=== PATIENT | male | born 1950 ===

== ENCOUNTER 2017-04-26 13:35 | Emergency (ER) | payer OTHER ==
[2017-04-26 13:38] VITALS: BMI 32.3
[2017-04-26 13:39] VITALS: TEMP 98.2; O2SAT 98
--- NOTE | 2017-04-26 14:08 | ED PDOC ---
Arrival/HPI - General Chief Complaint: Abdominal Pain Time Seen by Provider: 04/26/17 13:42 Historian: Patient - History of Present Illness Narrative History of Present Illness (Text): 04/26/17 14:11 A 66 year old male, whose past medical history includes diabetes, presents to the emergency department complaining of decrease urination for the past week. Patient also notes every time he goes to urinate, only a little comes out with a sense of urgency. Patient notes constipation and has had bowel movements, not large enough. Denies any other complaints at this time. PMD: None Time/Duration: 1 week Symptom Onset: Sudden Symptom Course: Unchanged Activities at Onset: Rest Context: Home Past Medical History - Provider Review Nursing Documentation Reviewed: Yes - Infectious Disease Hx of Infectious Diseases: None - Cardiac Hx Cardiac Disorders: No - Pulmonary Hx Respiratory Disorders: No - Neurological Hx Neurological Disorder: No - HEENT Hx HEENT Disorder: No - Renal Hx Renal Disorder: No - Endocrine/Metabolic Hx Endocrine Disorders: Yes Hx Diabetes Mellitus Type 2: Yes (NIDD) - Hematological/Oncological Hx Blood Disorders: No - Integumentary Hx Dermatological Disorder: No - Musculoskeletal/Rheumatological Hx Musculoskeletal Disorders: No - Gastrointestinal Hx Gastrointestinal Disorders: No - Genitourinary/Gynecological Hx Genitourinary Disorders: No - Psychiatric Hx Psychophysiologic Disorder: No Hx Substance Use: No - Anesthesia Hx Anesthesia: No Family/Social History - Physician Review Nursing Documentation Reviewed: Yes Family/Social History: No Known Family HX Smoking Status: Never Smoked Hx Alcohol Use: No Hx Substance Use: No Allergies/Home Meds Allergies/Adverse Reactions: Allergies No Known Allergies Allergy (Verified 04/26/17 13:37) Home Medications: Home Meds Medication Instructions Recorded Confirmed metFORMIN [glucOPHAGE] 1,000 mg PO DAILY 04/26/17 04/26/17 Review of Systems - Physician Review All systems were reviewed & negative as marked: Yes Physical Exam - Physical Exam Narrative Physical Exam (Text): 04/26/17 14:08- Review of Systems Constitutional: Normal. absent: Fatigue, Weight Change, Fevers Eyes: Normal ENT: Normal Respiratory: Normal absent: SOB, Cough, Sputum Cardiovascular: Normal absent: Chest pain, Palpitations, Syncope Gastrointestinal: constipation absent: Abdominal pain, Diarrhea, Nausea, Vomiting Genitourinary: decrease in urination absent: Dysuria, Frequency, Hematuria Musculoskeletal: Normal. absent: Arthralgias, Back Pain, Neck Pain Skin: Normal Neurological: Normal absent: Focal Weakness Endocrine: Normal Hemo/Lymphatic: Normal Psychiatric: Normal - Physical exam Patient appears age appropriate, speaking full sentences without difficulty - Systems Exam Head: Present: Atraumatic, Normocephalic Pupils: Present: PERRL Extraocular Muscles: Present: EOMI Conjunctiva: Present: Normal Mouth: Present: Moist Mucous Membranes Neck: Present: Normal Range of Motion. No: MIDLINE TENDERNESS, Paraspinal Tenderness Respiratory/Chest: Present: Clear to Auscultation, Good Air Exchange. No: Respiratory Distress, Accessory Muscle Use, Tachypnic Cardiovascular: Present: tachycardic, Peripheral Pulses Present. No: Murmurs Abdomen: Present: Normal Bowel Sounds, No: Tenderness, Peritoneal Signs, Rebound, Guarding, Distention Back: Present: Normal Inspection. No: Midline Tenderness, Paraspinal Tenderness Upper Extremity: Present: Normal Inspection. No: Cyanosis, Edema Lower Extremity: Present: Normal Inspection. No: Edema Neurological: Present: GCS=15, Speech Normal, cranial nerves II through XII fully intact with no cerebellar abnormality, neuro-sensory fully intact. No focal neurological deficits. Skin: Present: Warm, Dry, Normal Color. No: Rashes Lymphatic: Present: OX3, NI, NC Psychiatric: Present: Alert, Oriented x 3, Normal Insight, Normal Concentration Vital Signs Reviewed: Yes Vital Signs Temp Pulse Resp BP Pulse Ox 04/26/17 14:24 98 H 18 145/79 98 04/26/17 13:38 98.2 F 110 H 19 148/71 98 Temperature: Afebrile Blood Pressure: Normal Pulse: Tachycardic Respiratory Rate: Normal Appearance: Positive for: Well-Appearing, Non-Toxic, Comfortable Pain Distress: None Mental Status: Positive for: Alert and Oriented X 3 Medical Decision Making ED Course and Treatment: 04/26/17 14:00 Impression: A 66 year old male with decrease in urination and constipation. No acute findings on physical exam. Plan: -- CT abd/pelvis -- labs -- Urinalysis -- Reassess and disposition Progress Notes: 04/26/17 15:10 CT Abdomen and Pelvis without intravenous contrast Creator : Dr. Mireles, Gutierrez MÉNDEZ IMPRESSION: Multiple enlarged pelvic lymph nodes the largest in the left external iliac and right perirectal lymph nodes with generalized prostate enlargement and periprostatic fat infiltration suspicious for underlying prostate carcinoma. Recommend correlation with PSA levels and biopsy. 04/26/17 15:31 pt has possible UTI, prostatitis cannot be excluded based on CT read as well dw Dr. Lexy Amos in detail. States to obtain PSA level and to dc pt home with outpatient f/u this Wed. 2pm at [facility] [place]. states to dc home on cipro and flomax pt in no distress pt's friend translating without difficulty afebrile and hemodynamically stable states he feels comfortable being dc'd home with outpatient f/u pt has been informed of dangers of fluoroquinolones and tendon damage, and instructed about cessation of heavy lifting and strenuous physical activity for the next 2-3 weeks. Pt verbalized understanding. pt abd is soft/nt/nd, he is tolerating PO without difficulty Pt states he understands to return to the ER right away for new or worsening symptoms or for inability to f/u with PMD or specialist as instructed. Patient states that he fully agrees with and understands discharge instructions. States that she agrees with the plan and disposition. Verbalized and repeated discharge instructions and plan. I have given the patient opportunity to ask any additional questions. - Lab Interpretations Lab Results: 04/26/17 14:18 04/26/17 14:18 Lab Results 04/26/17 14:36: Urine Color Yellow, Urine Appearance Sl cloudy, Urine pH 6.0, Ur Specific [place] 1.020, Urine Protein Negative, Urine Glucose (UA) >=1000, Urine Ketones Trace H, Urine Blood Trace-lysed H, Urine Nitrate Positive H, Urine Bilirubin Negative, Urine Urobilinogen 0.2, Ur Leukocyte Esterase Trace H , Urine RBC 0 - 2, Urine WBC 15 - 20, Ur Epithelial Cells 0 - 2, Urine Bacteria Many 04/26/17 14:18: Sodium 134, Potassium 4.3, Chloride 100, Carbon Dioxide 26, Anion Gap 12, BUN 14, Creatinine 0.7, Est GFR ( Amer) > 60, Est GFR (Non- Af Amer) > 60, Random Glucose 352 H*, Calcium 9.1, Phosphorus 3.2, Magnesium 1.9 , Total Bilirubin 0.7, AST 25, ALT 36, Alkaline Phosphatase 180 H, Total Protein 7.5, Albumin 3.5, Globulin 3.9, Albumin/Globulin Ratio 0.9 L 04/26/17 14:18: PT 11.4, INR 1.06, APTT 28.2 04/26/17 14:18: WBC 13.5 H, RBC 4.07, Hgb 12.3 L, Hct 36.2 L, MCV 88.9, MCH 30.2 , MCHC 34.0, RDW 12.6, Plt Count 354, MPV 8.6, Gran % 83.9 H, Lymph % (Auto) 11.0 L, [place] % (Auto) 4.0, Eos % (Auto) 1.0 L, Baso % (Auto) 0.1, Gran # 11.31 H , Lymph # 1.5, [place] # 0.5, Eos # 0.1, Baso # 0.01 I have reviewed the lab results: Yes - RAD Interpretation Radiology Orders: 04/26/17 13:54 ABD & PELVIS W/O PO OR IV CONT [CT] Stat - Medication Orders Current Medication Orders: Sodium Chloride (Sodium Chloride 0.9%) 1,000 mls @ 1,000 mls/hr IV .Q1H STA Stop: 04/26/17 15:42 Last Admin: 04/26/17 14:45 Dose: 1,000 mls/hr - Scribe Statement The provider has reviewed the documentation as recorded by the Tianna Mallory Provider Scribe Attestation: All medical record entries made by the Scribe were at my direction and personally dictated by me. I have reviewed the chart and agree that the record accurately reflects my personal performance of the history, physical exam, medical decision making, and the department course for this patient. I have also personally directed, reviewed, and agree with the discharge instructions and disposition. Disposition/Present on Arrival - Present on Arrival Any Indicators Present on Arrival: No History of DVT/PE: No History of Uncontrolled Diabetes: No Urinary Catheter: No History of Decub. Ulcer: No History Surgical Site Infection Following: None - Disposition Have Diagnosis and Disposition been Completed?: Yes Diagnosis: Prostatitis Disposition: HOME/ ROUTINE Disposition Time: 15:43 Patient Plan: Discharge Patient Problems: Current Active Problems Problem Status Onset Prostatitis Acute Condition: GOOD Discharge Instructions (ExitCare): Prostatitis (ED), Constipation (ED) Additional Instructions: PLEASE RETURN TO THE EMERGENCY DEPARTMENT FOR NEW OR WORSENING SYMPTOMS. RETURN RIGHT AWAY IF YOU CANNOT FOLLOW UP WITH SCHEDULED YOU HAVE AN APPOINTMENT WITH DR. ISAEL AMOS THIS WEDNESDAY AT 2PM AT [facility] [address] [place] [address]. Prescriptions: Ciprofloxacin [Cipro] 500 mg PO Q12 #60 tab Docusate [Colace] 100 mg PO DAILY PRN #14 cap PRN Reason: Constipation Tamsulosin [Flomax] 0.4 mg PO DAILY #4 cap Referrals: PCP,NO [Primary Care Provider] - Follow up with primary Isael Amos MD [Staff Provider] - Follow up with primary
[2017-04-26 14:24] VITALS: RESP 18
[2017-04-26 14:32] LABS: ALB/GLOB RATIO 0.9 (1.1-1.8); ALBUMIN 3.5 g/dL (3.0-4.8); ALT/SGPT 36 U/L (7-56); AST/SGOT 25 U/L (15-59); BLOOD UREA NITROGEN 14 mg/dL (7-21); CALCIUM 9.1 mg/dL (8.4-10.5); GFR AFRICAN-AMERICAN > 60; GFR NON-AFRICAN AMERICAN > 60; INR 1.06 (0.93-1.08); MAGNESIUM 1.9 mg/dL (1.7-2.2); PARTIAL THROMBOPLASTIN TIME 28.2 Seconds (23.7-30.8); PROTHROMBIN TIME 11.4 Seconds (9.9-11.8)
[2017-04-26 14:39] LABS: BASO # 0.01 K/mm3 (0.0-2.0); BASO % 0.1 % (0.0-3.0); EOS # 0.1 (0.0-0.7); GRAN # 11.31 (1.4-6.5); GRAN % 83.9 % (50.0-68.0); HEMOGLOBIN 12.3 gm/dL (14.0-18.0); LYMPH # 1.5 (1.2-3.4); MEAN CELL VOLUME 88.9 fL (80.0-105.0); MEAN CORPUSCULAR HEMOGLOBIN 30.2 pg (25.0-35.0); MEAN PLATELET VOLUME 8.6 fl (7.0-11.0); MONO # 0.5 (0.1-0.6); PLATELET COUNT 354 10^3/uL (120.0-450.0); RBC 4.07 10^6/uL (3.5-6.1); RED CELL DISTRIBUTION WIDTH 12.6 % (11.5-14.5); WHITE BLOOD COUNT 13.5 10^3/ul (4.5-11.0)
[2017-04-26] MEDS ORDERED: Sodium Chloride 0.9% 1,000 ML IV STA (14:43)
[2017-04-26 15:06] LABS: URINE BILIRUBIN NEGATIVE (NEGATIVE); URINE BLOOD TRACE-LYSED (NEGATIVE); URINE GLUCOSE (UA) >=1000 mg/dL (NEGATIVE); URINE LEUKOCYTE ESTERASE TRACE Leu/uL (NEGATIVE); URINE NITRATE POSITIVE (NEGATIVE); URINE PROTEIN NEGATIVE mg/dL (<30 mg/dL); URINE UROBILINOGEN 0.2 E.U./dL (<1 E.U./dL)
--- NOTE | 2017-04-26 15:08 | CT ---
PROCEDURE: CT Abdomen and Pelvis without intravenous contrast HISTORY: constipation COMPARISON: None. TECHNIQUE: Technique. Contrast Dose: Radiation dose: Total exam DLP = 1143 mGy-cm. This CT exam was performed using one or more of the following dose reduction techniques: Automated exposure control, adjustment of the mA and/or kV according to patient size, and/or use of iterative reconstruction technique. FINDINGS: LOWER THORAX: Unremarkable. LIVER: Unremarkable. No gross lesion or ductal dilatation. GALLBLADDER AND BILE DUCTS: Unremarkable. PANCREAS: Unremarkable. No gross lesion or ductal dilatation. SPLEEN: Unremarkable. ADRENALS: Unremarkable. No mass. KIDNEYS AND URETERS: Unremarkable. No hydronephrosis. No solid mass. 2.7 centimeter left lower pole renal cyst. VASCULATURE: Unremarkable. No aortic aneurysm. BOWEL: Unremarkable. No obstruction. No gross mural thickening. APPENDIX: Unremarkable. Normal appendix. PERITONEUM: Unremarkable. No free fluid. No free air. LYMPH NODES: Enlarged pelvic lymph nodes most notably in the left external iliac chain measuring 11 millimeters. 9 millimeter right perirectal lymph node BLADDER: Unremarkable. REPRODUCTIVE: Prostate enlargement with infiltration of the periprostatic fat.. BONES: No acute fracture. OTHER FINDINGS: None. IMPRESSION: Multiple enlarged pelvic lymph nodes the largest in the left external iliac and right perirectal lymph nodes with generalized prostate enlargement and periprostatic fat infiltration suspicious for underlying prostate carcinoma. Recommend correlation with PSA levels and biopsy.
[2017-04-26 15:09] LABS: URINE APPEARANCE SL CLOUDY (CLEAR); URINE COLOR YELLOW (YELLOW)
[2017-04-26 15:24] LABS: URINE BACTERIA MANY (NEG); URINE EPITHELIAL CELLS 0 - 2 /hpf (0-5); URINE RBC 0 - 2 /hpf (0-2); URINE WBC 15 - 20 /hpf (0-6)
[2017-04-26 16:29] VITALS: BP 141/75; PULSE 89
== END 2017-04-26 16:33 | disposition home or self-care (01) ==
LOC: ED 13:35
DX: N41.9 Inflammatory disease of prostate, unspecified (principal); E11.9 Type 2 diabetes mellitus without complications
CPT/HCPCS: 74176; 80053; 81001; 83735; 84100; 84153; 85025; 85610; 85730; 87086; 87181; 96360; 99284; J7040

== ENCOUNTER 2017-04-26 18:48 | Inpatient (IN) | payer OTHER ==
[2017-04-26 19:03] VITALS: BMI 31.5
--- NOTE | 2017-04-26 20:05 | ED PDOC ---
Arrival/HPI - General Chief Complaint: High Blood Sugar Time Seen by Provider: 04/26/17 19:26 Historian: Patient - History of Present Illness Narrative History of Present Illness (Text): 04/26/17 20:06 A 66 year old male, whose past medical history includes diabetes, presents to the emergency department complaining of generalized malaise, chills and difficulty urinating. Patient was seen in the emergency department today with complaint of difficulty urinating and constipation. Patient was evaluated and diagnosed prostatitis. Had a CAT scan done, suspicion of underlying carcinoma. Patient was prescribed antibiotics. Patient following discharge, developed symptoms and returned to emergency department. Symptom Onset: Sudden Symptom Course: Unchanged Activities at Onset: Rest Context: Home Past Medical History - Provider Review Nursing Documentation Reviewed: Yes - Infectious Disease Hx of Infectious Diseases: None - Cardiac Hx Cardiac Disorders: No - Pulmonary Hx Respiratory Disorders: No - Neurological Hx Neurological Disorder: No - HEENT Hx HEENT Disorder: No - Renal Hx Renal Disorder: No - Endocrine/Metabolic Hx Endocrine Disorders: Yes Hx Diabetes Mellitus Type 2: Yes (NIDD) - Hematological/Oncological Hx Blood Disorders: No - Integumentary Hx Dermatological Disorder: No - Musculoskeletal/Rheumatological Hx Musculoskeletal Disorders: No - Gastrointestinal Hx Gastrointestinal Disorders: No - Genitourinary/Gynecological Hx Genitourinary Disorders: No - Psychiatric Hx Psychophysiologic Disorder: No Hx Substance Use: No - Anesthesia Hx Anesthesia: No Family/Social History - Physician Review Nursing Documentation Reviewed: Yes Family/Social History: No Known Family HX Smoking Status: Never Smoked Hx Alcohol Use: No Hx Substance Use: No Allergies/Home Meds Allergies/Adverse Reactions: Allergies No Known Allergies Allergy (Verified 04/26/17 13:37) Home Medications: Home Meds Medication Instructions Recorded Confirmed metFORMIN [glucOPHAGE] 1,000 mg PO DAILY 04/26/17 04/26/17 Review of Systems - Physician Review All systems were reviewed & negative as marked: Yes - Review of Systems Constitutional: Other (chills; generalized malaise) Genitourinary Male: Other (difficulty urinating) Physical Exam Vital Signs Reviewed: Yes Vital Signs Temp Pulse Resp BP Pulse Ox 04/26/17 20:02 103 F H 04/26/17 18:56 98.6 F 145 H 24 149/86 95 Temperature: Afebrile Blood Pressure: Normal Pulse: Tachycardic Respiratory Rate: Normal Appearance: Positive for: Well-Appearing, Non-Toxic, Comfortable Pain Distress: None Mental Status: Positive for: Alert and Oriented X 3 Finger Stick Blood Glucose: 339 - Systems Exam Head: Present: Atraumatic, Normocephalic Pupils: Present: PERRL Extroacular Muscles: Present: EOMI Conjunctiva: Present: Normal Mouth: Present: Moist Mucous Membranes Neck: Present: Normal Range of Motion Respiratory/Chest: Present: Clear to Auscultation, Good Air Exchange. No: Respiratory Distress, Accessory Muscle Use Cardiovascular: Present: Tachycardic. No: Murmurs Abdomen: Present: Normal Bowel Sounds. No: Tenderness, Distention, Peritoneal Signs Back: Present: Normal Inspection Upper Extremity: Present: Normal Inspection. No: Cyanosis, Edema Lower Extremity: Present: Normal Inspection. No: Edema Neurological: Present: GCS=15, CN II-XII Intact, Speech Normal Skin: Present: Warm, Dry, Normal Color. No: Rashes Psychiatric: Present: Alert, Oriented x 3, Normal Insight, Normal Concentration Medical Decision Making ED Course and Treatment: 04/26/17 20:02 Impression: A 66 year old male with generalized malaise, chills and difficulty urinating. Differential Diagnosis included but are not limited to: prostate carcinoma vs. UTI vs. urosepsis Plan: -- EKG -- chest xray -- labs -- Urinalysis -- IV fluids, Tylenol -- Reassess and disposition Prior Visits: Notes and results from previous visits were reviewed. Patient seen in the emergency department today for decrease urination. Progress Notes: EKG: Ordered, reviewed, and independently interpreted the EKG. Rate : 140 BPM Rhythm : Sinus tachycardic Interpretation : left axis deviation, nonspecific ST/T changes 04/26/17 20:50 Case was d/w who saw and evaluated pt. in ED.Accepts to the hospitalist service. - Lab Interpretations Lab Results: 04/26/17 19:40 04/26/17 19:40 Lab Results 04/26/17 20:00: Urine Color Yellow, Urine Appearance Cloudy, Urine pH 6.0, Ur Specific [place] 1.020, Urine Protein Negative, Urine Glucose (UA) >=1000, Urine Ketones 40 H, Urine Blood Moderate H, Urine Nitrate Positive H, Urine Bilirubin Negative, Urine Urobilinogen 0.2, Ur Leukocyte Esterase Small H, Urine RBC 5 - 10, Urine WBC 5 - 10, Ur Epithelial Cells 3 - 4, Urine Bacteria Many 04/26/17 19:40: Sodium 134, Chloride 100, Potassium 3.9, Carbon Dioxide 24, Anion Gap 14, BUN 13, Creatinine 0.7, Est GFR ( Amer) > 60, Est GFR (Non- Af Amer) > 60, Random Glucose 323 H*, Calcium 9.0, Phosphorus 2.0 L, Magnesium 1.7, Total Bilirubin 0.8, AST 27, ALT 35, Alkaline Phosphatase 202 H, Total Protein 7.5, Albumin 3.6, Globulin 3.9, Albumin/Globulin Ratio 0.9 L 04/26/17 19:40: pO2 35, VBG pH 7.37, VBG pCO2 42.0, VBG HCO3 24.3, VBG Total CO2 25.6, VBG O2 Sat (Calc) 68.4 H, VBG Base Excess -1.1 L, VBG Potassium 4.1, Sodium 135.0, Chloride 102.0, Glucose 336 H, Lactate 2.1, FiO2 21.0, Venous Blood Potassium 4.1 04/26/17 19:40: PT 11.6, INR 1.07, APTT 23.3 L 04/26/17 19:40: WBC 13.8 H, RBC 4.22, Hgb 12.7 L, Hct 37.5 L, MCV 88.9, MCH 30.1 , MCHC 33.9, RDW 12.7, Plt Count 358, MPV 8.8, Gran % 93.3 H, Lymph % (Auto) 4.4 L, [place] % (Auto) 1.6, Eos % (Auto) 0.6 L, Baso % (Auto) 0.1, Gran # 12.86 H , Lymph # 0.6 L, [place] # 0.2, Eos # 0.1, Baso # 0.01 I have reviewed the lab results: Yes - RAD Interpretation Radiology Orders: 04/26/17 20:25 CHEST PORTABLE [RAD] Stat - EKG Interpretation Interpreted by ED Physician: Yes Type: 12 lead EKG - Medication Orders Current Medication Orders: Cefepime HCl (Maxipime 2gm) 2 gm in 100 mls @ 100 mls/hr IVPB STAT STA PRN Reason: Protocol Stop: 04/26/17 21:24 Last Admin: 04/26/17 20:35 Dose: 100 mls/hr Discontinued Medications Acetaminophen (Tylenol 325mg Tab) 650 mg PO STAT STA Stop: 04/26/17 19:34 Last Admin: 04/26/17 20:02 Dose: 650 mg Sodium Chloride (Sodium Chloride 0.9%) 1,000 mls @ 999 mls/hr IV .Q1H1M STA Stop: 04/26/17 20:33 Last Admin: 04/26/17 20:55 Dose: Sodium Chloride 2,990 ml/ IV (SUPPLIES) 2,990 mls @ 5,987.4 mls/hr IV ONCE ONE PRN Reason: 60 ML/KG/HR Stop: 04/26/17 19:59 Last Admin: 04/26/17 20:55 Dose: 5,987.4 mls/hr - Scribe Statement The provider has reviewed the documentation as recorded by the Tianna Mallory Provider Scribe Attestation: All medical record entries made by the Letaibrocky were at my direction and personally dictated by me. I have reviewed the chart and agree that the record accurately reflects my personal performance of the history, physical exam, medical decision making, and the department course for this patient. I have also personally directed, reviewed, and agree with the discharge instructions and disposition. Disposition/Present on Arrival - Present on Arrival Any Indicators Present on Arrival: No History of DVT/PE: No History of Uncontrolled Diabetes: No Urinary Catheter: No History of Decub. Ulcer: No History Surgical Site Infection Following: None - Disposition Have Diagnosis and Disposition been Completed?: Yes Diagnosis: Sepsis Disposition: HOSPITALIZED Disposition Time: 21:07 Patient Plan: Admission Condition: STABLE Discharge Instructions (ExitCare): Sepsis (ED) Referrals: PCP,NO [Primary Care Provider] - Follow up with primary
[2017-04-26 20:08] LABS: VENOUS BLOOD GAS BASE EXCESS -1.1 mmol/L (0.0-2.0); VENOUS BLOOD GAS PO2 35 mm/Hg (30-55); VENOUS BLOOD PH 7.37 (7.32-7.43)
[2017-04-26] MEDS: Sodium Chloride 0.9% 1,000 ML IV STA ×2 (20:10→20:55)
[2017-04-26 20:15] LABS: BASO # 0.01 K/mm3 (0.0-2.0); BASO % 0.1 % (0.0-3.0); EOS # 0.1 (0.0-0.7); EOS % 0.6 % (1.5-5.0); GRAN # 12.86 (1.4-6.5); GRAN % 93.3 % (50.0-68.0); HEMOGLOBIN 12.7 gm/dL (14.0-18.0); LYMPH # 0.6 (1.2-3.4); LYMPH % 4.4 % (22.0-35.0); MEAN CELL VOLUME 88.9 fL (80.0-105.0); MEAN CORPUSCULAR HEMOGLOBIN 30.1 pg (25.0-35.0); MEAN CORPUSCULAR HGB CONC 33.9 g/dl (31.0-37.0); MEAN PLATELET VOLUME 8.8 fl (7.0-11.0); MONO # 0.2 (0.1-0.6); MONO % 1.6 % (1.0-6.0); PLATELET COUNT 358 10^3/uL (120.0-450.0); RBC 4.22 10^6/uL (3.5-6.1); RED CELL DISTRIBUTION WIDTH 12.7 % (11.5-14.5); WHITE BLOOD COUNT 13.8 10^3/ul (4.5-11.0)
[2017-04-26 20:17] LABS: URINE BILIRUBIN NEGATIVE (NEGATIVE); URINE BLOOD MODERATE (NEGATIVE); URINE GLUCOSE (UA) >=1000 mg/dL (NEGATIVE); URINE LEUKOCYTE ESTERASE SMALL Leu/uL (NEGATIVE); URINE NITRATE POSITIVE (NEGATIVE); URINE PROTEIN NEGATIVE mg/dL (<30 mg/dL); URINE UROBILINOGEN 0.2 E.U./dL (<1 E.U./dL)
[2017-04-26 20:19] LABS: ALB/GLOB RATIO 0.9 (1.1-1.8); ALBUMIN 3.6 g/dL (3.0-4.8); ALT/SGPT 35 U/L (7-56); AST/SGOT 27 U/L (15-59); BLOOD UREA NITROGEN 13 mg/dL (7-21); GFR AFRICAN-AMERICAN > 60; GFR NON-AFRICAN AMERICAN > 60; MAGNESIUM 1.7 mg/dL (1.7-2.2)
[2017-04-26 20:23] LABS: INR 1.07 (0.93-1.08); PARTIAL THROMBOPLASTIN TIME 23.3 Seconds (23.7-30.8); PROTHROMBIN TIME 11.6 Seconds (9.9-11.8)
[2017-04-26] MEDS ORDERED: Cefepime IV 2 gm in NS 2 GM/100 ML BAG IVPB STA (20:25)
[2017-04-26 20:33] LABS: URINE APPEARANCE CLOUDY (CLEAR); URINE COLOR YELLOW (YELLOW)
[2017-04-26 20:51] LABS: URINE BACTERIA MANY (NEG)
[2017-04-26] MEDS: Sodium Chloride 0.9% 1,000 ML IV SCH ×2 (22:25→23:30)
[2017-04-26] MEDS ORDERED: Pneumococcal 23-Valent Vaccine IM ONE (22:56)
[2017-04-26 23:12] LABS: VENOUS BLOOD GAS BASE EXCESS -3.2 mmol/L (0.0-2.0); VENOUS BLOOD GAS PO2 103 mm/Hg (30-55); VENOUS BLOOD PH 7.39 (7.32-7.43)
[2017-04-27 01:09] LABS: URINE BILIRUBIN NEGATIVE (NEGATIVE); URINE BLOOD LARGE (NEGATIVE); URINE GLUCOSE (UA) >=1000 mg/dL (NEGATIVE); URINE LEUKOCYTE ESTERASE SMALL Leu/uL (NEGATIVE); URINE NITRATE POSITIVE (NEGATIVE); URINE PROTEIN TRACE mg/dL (<30 mg/dL); URINE UROBILINOGEN 0.2 E.U./dL (<1 E.U./dL)
[2017-04-27 01:25] LABS: URINE COLOR YELLOW (YELLOW)
[2017-04-27 01:26] LABS: URINE APPEARANCE SL CLOUDY (CLEAR)
[2017-04-27 01:33] LABS: URINE EPITHELIAL CELLS 0 - 2 /hpf (0-5)
[2017-04-27 01:34] LABS: URINE BACTERIA SMALL (NEG)
--- NOTE | 2017-04-27 02:14 | CP.PCM.HP ---
<QUITA EASTON - Last Filed: 04/27/17 07:17> History of Present Illness - History of Present Illness History of Present Illness: A 66 year old male with a past medical history of DM II, presented to the ED today with complaints of difficulty urinating, suprapubic pain, and a general feeling of malaise. Patient was evaluated and diagnosed with prostatitis in the ED for which he was prescribed ciprofloxacin. Patient was sent home where he was later found to be delirious as described by his girlfriend. As per girlfriend patient was speaking to himself and not making much sense. Upon returning to the ED, patient still complained of similar symptoms he had earlier this day. Present on Admission - Present on Admission Any Indicators Present on Admission: No History of DVT/PE: No History of Uncontrolled Diabetes: Yes Urinary Catheter: Yes Decubitus Ulcer Present: No Review of Systems - Review of Systems Systems not reviewed;Unavailable: Altered Mental Status, Language Barrier All systems: reviewed and no additional remarkable complaints except (dysuria, general malaise, chills) Past Patient History - Infectious Disease Hx of Infectious Diseases: None - Past Medical History & Family History Past Medical History?: No - Past Social History Smoking Status: Never Smoked - CARDIAC Hx Cardiac Disorders: No - PULMONARY Hx Respiratory Disorders: No - NEUROLOGICAL Hx Neurological Disorder: No - HEENT Hx HEENT Problems: No - RENAL Hx Chronic Kidney Disease: No - ENDOCRINE/METABOLIC Hx Endocrine Disorders: Yes Hx Diabetes Mellitus Type 2: Yes (NIDD) - HEMATOLOGICAL/ONCOLOGICAL Hx Blood Disorders: No - INTEGUMENTARY Other/Comment: multiple skin discolorations ble and dry scabs to rle, small red wound 0.5cm round left shoulder - MUSCULOSKELETAL/RHEUMATOLOGICAL Hx Musculoskeletal Disorders: No Hx Falls: No - GASTROINTESTINAL Hx Gastrointestinal Disorders: No - GENITOURINARY/GYNECOLOGICAL Hx Genitourinary Disorders: Yes (difficulty urinating) - PSYCHIATRIC Hx Psychophysiologic Disorder: No Hx Substance Use: No - SURGICAL HISTORY 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) - ANESTHESIA Hx Anesthesia: No Meds Allergies/Adverse Reactions: Allergies Allergy/AdvReac Type Severity Reaction Status Date / Time No Known Allergies Allergy Verified 04/26/17 13:37 Physical Exam - Head Exam Head Exam: ATRAUMATIC, NORMAL INSPECTION, NORMOCEPHALIC - Eye Exam Eye Exam: Normal appearance - ENT Exam ENT Exam: Mucous Membranes Moist, Normal Exam - Neck Exam Neck exam: Positive for: Normal Inspection - Respiratory Exam Respiratory Exam: Clear to Auscultation Bilateral, NORMAL BREATHING PATTERN - Cardiovascular Exam Cardiovascular Exam: REGULAR RHYTHM - GI/Abdominal Exam GI & Abdominal Exam: Normal Bowel Sounds - Neurological Exam Neurological exam: Alert Results - Vital Signs Recent Vital Signs: Last Vital Signs Temp 101.5 F H 04/27/17 00:39 Pulse 92 H 04/27/17 01:57 Resp 20 04/27/17 00:01 BP 149/77 04/27/17 00:01 Pulse Ox 98 04/27/17 00:01 - Labs Result Diagrams: 04/26/17 19:40 04/26/17 19:40 Labs: Laboratory Results - last 24 hr 04/26/17 04/26/17 04/27/17 22:38 23:06 01:00 pO2 103 H VBG pH 7.39 VBG pCO2 35.0 L VBG HCO3 21.2 VBG Total CO2 22.3 VBG O2 Sat (Calc) 98.6 H VBG Base Excess -3.2 L VBG Potassium 4.2 Sodium 134.0 Chloride 106.0 Glucose 372 H Lactate 1.3 FiO2 21.0 POC Glucose (mg/dL) 397 H Venous Blood Potassium 4.2 Urine Color Yellow Urine Appearance Sl cloudy Urine pH 6.0 Ur Specific [place] 1.025 Urine Protein Trace H Urine Glucose (UA) >=1000 Urine Ketones 40 H Urine Blood Large H Urine Nitrate Positive H Urine Bilirubin Negative Urine Urobilinogen 0.2 Ur Leukocyte Esterase Small H Urine RBC 5 - 10 Urine WBC 5 - 10 Ur Epithelial Cells 0 - 2 Urine Bacteria Small Assessment & Plan (1) Sepsis due to urinary tract infection Assessment and Plan: Patient was started on IV cefipime 2 gm in 100 mL NS and Zofran 4 mg IV q 12 hours. Will monitor WBC count and response to therapy with daily CBCs at 6 am for the next 5 days. Will have a cmp done in the morning. Status: Acute (2) Hyperglycemia Assessment and Plan: Patient was started on Insulin low dose sliding scale since patient is already prescribed metformin PO from PCP . Status: Acute (3) Hypophosphatemia Assessment and Plan: Can cause weakness and loss of energy. Prescribed I packet PO TID of Neutraphos. Will continue to monitor phosphate levels during course of stay. Status: Acute (4) Prostatitis Assessment and Plan: Due to positive LAD and suprapubic pain rated a 7/10, will have urology on board with this case to determine whether LAD is from a cancerous etiology or due to protatitis. Will prescribe flomax since patient is complaining of difficulty urinating. Status: Acute <Agnes,Brendon Q - Last Filed: 05/01/17 06:53> Results - Vital Signs Recent Vital Signs: Last Vital Signs Temp 98.6 F 04/30/17 07:30 Pulse 77 04/30/17 07:30 Resp 20 04/30/17 07:30 BP 157/74 H 04/30/17 07:30 Pulse Ox 95 04/30/17 07:30 - Labs Result Diagrams: 04/30/17 06:50 04/30/17 06:50 Labs: Laboratory Results - last 24 hr 04/29/17 04/29/17 04/30/17 06:30 07:30 06:50 WBC 9.7 RBC 3.68 Hgb 10.8 L Hct 32.7 L MCV 88.9 MCH 29.3 MCHC 33.0 RDW 12.9 Plt Count 336 MPV 8.4 Gran % 76.3 H Lymph % (Auto) 15.4 L [place] % (Auto) 5.8 Eos % (Auto) 2.3 Baso % (Auto) 0.2 Gran # 7.37 H Lymph # 1.5 [place] # 0.6 Eos # 0.2 Baso # 0.02 Sodium Potassium Chloride Carbon Dioxide Anion Gap BUN Creatinine Est GFR ( Amer) Est GFR (Non-Af Amer) Random Glucose Calcium Total Bilirubin AST ALT Alkaline Phosphatase Total Protein Albumin Globulin Albumin/Globulin Ratio Free PSA 0.6 % Free PSA 19 L Total PSA 3.1 Prostate Cancer Risk 24 HIV 1&2 Ag/Ab, 4th Gen Nonreactive 04/30/17 06:50 WBC RBC Hgb Hct MCV MCH MCHC RDW Plt Count MPV Gran % Lymph % (Auto) [place] % (Auto) Eos % (Auto) Baso % (Auto) Gran # Lymph # [place] # Eos # Baso # Sodium 136 Potassium 4.1 Chloride 102 Carbon Dioxide 28 Anion Gap 10 BUN 8 Creatinine 0.6 Est GFR ( Amer) > 60 Est GFR (Non-Af Amer) > 60 Random Glucose 185 H Calcium 8.6 Total Bilirubin 0.4 AST 55 ALT 43 Alkaline Phosphatase 154 H Total Protein 6.5 Albumin 3.0 Globulin 3.5 Albumin/Globulin Ratio 0.9 L Free PSA % Free PSA Total PSA Prostate Cancer Risk HIV 1&2 Ag/Ab, 4th Gen Attending/Attestation - Attestation I have personally seen and examined this patient.: Yes I have fully participated in the care of the patient.: Yes I have reviewed all pertinent clinical information: Yes
[2017-04-27] MEDS: Sodium Chloride 0.9% 1,000 ML IV SCH ×5 (05:34→22:57)
[2017-04-27 07:30] LABS: BASO # 0.02 K/mm3 (0.0-2.0); BASO % 0.1 % (0.0-3.0); EOS % 0.3 % (1.5-5.0); GRAN # 11.59 (1.4-6.5); HEMOGLOBIN 10.9 gm/dL (14.0-18.0); LYMPH # 1.2 (1.2-3.4); LYMPH % 8.7 % (22.0-35.0); MEAN CELL VOLUME 89.7 fL (80.0-105.0); MEAN CORPUSCULAR HEMOGLOBIN 29.5 pg (25.0-35.0); MEAN CORPUSCULAR HGB CONC 32.9 g/dl (31.0-37.0); MEAN PLATELET VOLUME 8.9 fl (7.0-11.0); MONO # 0.7 (0.1-0.6); MONO % 4.9 % (1.0-6.0); PLATELET COUNT 299 10^3/uL (120.0-450.0); RBC 3.69 10^6/uL (3.5-6.1); WHITE BLOOD COUNT 13.5 10^3/ul (4.5-11.0)
[2017-04-27] MEDS: Insulin Reg-LOW-Coverage SC SCH ×4 (08:07→21:27)
[2017-04-27 08:15] LABS: ALB/GLOB RATIO 0.9 (1.1-1.8); ALBUMIN 3.1 g/dL (3.0-4.8); ALT/SGPT 40 U/L (7-56); AST/SGOT 26 U/L (15-59); BLOOD UREA NITROGEN 10 mg/dL (7-21); GFR AFRICAN-AMERICAN > 60; GFR NON-AFRICAN AMERICAN > 60
--- NOTE | 2017-04-27 08:47 | CARD ---
APPROVED REPORT EKG Measurement Heart [id number] <Conclusion> Sinus tachycardia Possible Left atrial enlargement Left axis deviation Abnormal ECG
[2017-04-27] MEDS: Pantoprazole 40 mg EC Tab PO SCH (09:33)
[2017-04-27] MEDS: Potassium & Sodium Phosphate PO SCH ×3 (09:33→17:34)
[2017-04-27] MEDS: Cefepime IV 2 gm in NS 2 GM/100 ML BAG IVPB SCH ×2 (09:33→21:26)
--- NOTE | 2017-04-27 10:40 | RAD ---
HISTORY: Sepsis Patient COMPARISON: Not available FINDINGS: LUNGS: No active pulmonary disease. PLEURA: No significant pleural effusion identified, no pneumothorax apparent. CARDIOVASCULAR: Normal. OSSEOUS STRUCTURES: No significant abnormalities. VISUALIZED UPPER ABDOMEN: Normal. OTHER FINDINGS: None. IMPRESSION: No active disease.
[2017-04-27] MEDS: Oxycodone/Acetaminophen 5/325 mg Tab PO PRN ×2 (12:45→20:26)
[2017-04-28] MEDS: Oxycodone/Acetaminophen 5/325 mg Tab PO PRN ×3 (05:26→18:32)
[2017-04-28] MEDS: Sodium Chloride 0.9% 1,000 ML IV SCH ×2 (05:58→17:01)
[2017-04-28 07:48] LABS: BASO # 0.01 K/mm3 (0.0-2.0); BASO % 0.1 % (0.0-3.0); EOS # 0.2 (0.0-0.7); EOS % 1.9 % (1.5-5.0); GRAN # 8.33 (1.4-6.5); GRAN % 78.3 % (50.0-68.0); HEMOGLOBIN 10.3 gm/dL (14.0-18.0); LYMPH # 1.4 (1.2-3.4); LYMPH % 13.5 % (22.0-35.0); MEAN CELL VOLUME 89.2 fL (80.0-105.0); MEAN CORPUSCULAR HEMOGLOBIN 29.3 pg (25.0-35.0); MEAN CORPUSCULAR HGB CONC 32.9 g/dl (31.0-37.0); MEAN PLATELET VOLUME 8.7 fl (7.0-11.0); MONO # 0.7 (0.1-0.6); MONO % 6.2 % (1.0-6.0); PLATELET COUNT 298 10^3/uL (120.0-450.0); RBC 3.51 10^6/uL (3.5-6.1); RED CELL DISTRIBUTION WIDTH 12.9 % (11.5-14.5); WHITE BLOOD COUNT 10.6 10^3/ul (4.5-11.0)
[2017-04-28 08:00] LABS: ALB/GLOB RATIO 0.9 (1.1-1.8); ALBUMIN 2.8 g/dL (3.0-4.8); ALT/SGPT 35 U/L (7-56); AST/SGOT 21 U/L (15-59); BLOOD UREA NITROGEN 7 mg/dL (7-21); CALCIUM 7.7 mg/dL (8.4-10.5); GFR AFRICAN-AMERICAN > 60; GFR NON-AFRICAN AMERICAN > 60
--- NOTE | 2017-04-28 08:28 | PCM.URO ---
Urology Progress Note - Objective Lab Results Last 24 Hours: Laboratory Results - last 24 hr 04/27/17 04/27/17 04/27/17 11:04 12:00 16:00 WBC RBC Hgb Hct MCV MCH MCHC RDW Plt Count MPV Gran % Lymph % (Auto) [place] % (Auto) Eos % (Auto) Baso % (Auto) Gran # Lymph # [place] # Eos # Baso # Sodium Potassium Chloride Carbon Dioxide Anion Gap BUN Creatinine Est GFR ( Amer) Est GFR (Non-Af Amer) POC Glucose (mg/dL) 334 H 281 H Random Glucose Hemoglobin A1c 13.2 H Calcium Total Bilirubin AST ALT Alkaline Phosphatase Total Protein Albumin Globulin Albumin/Globulin Ratio 04/27/17 04/28/17 04/28/17 21:06 07:10 07:10 WBC 10.6 D RBC 3.51 Hgb 10.3 L Hct 31.3 L MCV 89.2 MCH 29.3 MCHC 32.9 RDW 12.9 Plt Count 298 MPV 8.7 Gran % 78.3 H Lymph % (Auto) 13.5 L [place] % (Auto) 6.2 H Eos % (Auto) 1.9 Baso % (Auto) 0.1 Gran # 8.33 H Lymph # 1.4 [place] # 0.7 H Eos # 0.2 Baso # 0.01 Sodium 135 Potassium 3.5 L Chloride 103 Carbon Dioxide 27 Anion Gap 9 L BUN 7 Creatinine 0.7 Est GFR ( Amer) > 60 Est GFR (Non-Af Amer) > 60 POC Glucose (mg/dL) 302 H Random Glucose 249 H Hemoglobin A1c Calcium 7.7 L Total Bilirubin 0.3 AST 21 ALT 35 Alkaline Phosphatase 150 H Total Protein 6.0 Albumin 2.8 L Globulin 3.2 Albumin/Globulin Ratio 0.9 L Intake & Output: Intake & Output 04/27/17 04/28/17 04/28/17 18:59 06:59 18:59 Intake Total 360 2110 Output Total 1100 2500 Balance -740 -390 Weight 208 lb Intake: IV 1750 Left Antecubital 1750 Oral 360 360 Output: Urine 1100 2500 Urethral (Ortiz) 1100 2500 Emesis 0 Other: Voiding Method Indwelling Catheter # Bowel Movements 4 1 Vital Signs: Vital Signs - 24 hr 04/27/17 04/27/17 04/27/17 11:39 17:29 18:00 Temperature 98.9 F 99 F Pulse Rate 89 86 98 H Respiratory 20 20 Rate Blood Pressure 144/83 137/80 O2 Sat by Pulse Oximetry 04/27/17 04/28/17 04/28/17 22:00 00:01 02:00 Temperature 99.2 F Pulse Rate 90 89 89 Respiratory 20 Rate Blood Pressure 167/85 H O2 Sat by Pulse 99 Oximetry 04/28/17 06:00 Temperature 98.7 F Pulse Rate 80 Respiratory 20 Rate Blood Pressure 137/79 O2 Sat by Pulse 98 Oximetry
[2017-04-28] MEDS: Pantoprazole 40 mg EC Tab PO SCH (09:05)
[2017-04-28] MEDS: Potassium & Sodium Phosphate PO SCH ×3 (09:05→18:33)
[2017-04-28] MEDS: Cefepime IV 2 gm in NS 2 GM/100 ML BAG IVPB SCH ×2 (09:05→21:22)
[2017-04-28] MEDS: Insulin Reg-LOW-Coverage SC SCH ×4 (09:06→22:05)
[2017-04-28] MEDS ORDERED: Potassium Chloride 20 mEq ER Tab PO ONE (09:09)
[2017-04-28] MEDS ORDERED: Insulin Lispro (humaLOG) MIX 75/25(10 ml) SC SCH (10:00)
--- NOTE | 2017-04-28 16:15 | CP.PCM.PN ---
<Shakir Caceres - Last Filed: 04/28/17 16:44> Subjective - Date & Time of Evaluation Date of Evaluation: 04/28/17 Time of Evaluation: 09:00 - Subjective Subjective: Patient has been seen and examined. Patient still complains of suprapublic tenderness but states that it has been improving. Patient denies any poluria, Fever, Chills, trouble breathing, or chest pain) Objective - Vital Signs/Intake and Output Vital Signs (last 24 hours): Temp Pulse Resp BP Pulse Ox 97.1 F L 82 19 153/78 H 98 04/28/17 12:00 04/28/17 12:00 04/28/17 12:00 04/28/17 12:00 04/28/17 06:00 Intake and Output: 04/28/17 04/28/17 06:59 18:59 Intake Total 2110 Output Total 2500 Balance -390 - Medications Medications: Current Medications Acetaminophen (Tylenol 325mg Tab) 650 mg PO Q6H PRN PRN Reason: Fever >100.4 F Glipizide (Glucotrol) 10 mg PO 0730,1630 [facility] Heparin Sodium (Porcine) (Heparin) 5,000 units SC Q8 [facility] PRN Reason: Protocol Last Admin: 04/28/17 14:29 Dose: 5,000 units Cefepime HCl (Maxipime 2gm) 2 gm in 100 mls @ 100 mls/hr IVPB Q12 [facility] PRN Reason: Protocol Stop: 05/02/17 10:01 Last Admin: 04/28/17 09:05 Dose: 100 mls/hr Sodium Chloride (Sodium Chloride 0.9%) 1,000 mls @ 150 mls/hr IV .Q6H40M [facility] Last Admin: 04/28/17 05:58 Dose: 150 mls/hr Insulin Human Regular (Humulin R Low) 0 units SC ACHS [facility] PRN Reason: Protocol Last Admin: 04/28/17 12:28 Dose: 4 units Metformin HCl (Glucophage) 500 mg PO BID [facility] Ondansetron HCl (Zofran Inj) 4 mg IVP Q6H PRN PRN Reason: Nausea/Vomiting Oxycodone/Acetaminophen (Percocet 5/325 Mg Tab) 1 tab PO Q6H PRN PRN Reason: Pain, severe (8-10) Stop: 04/30/17 11:58 Last Admin: 04/28/17 12:31 Dose: 1 tab Pantoprazole Sodium (Protonix Ec Tab) 40 mg PO DAILY [facility] Last Admin: 04/28/17 09:05 Dose: 40 mg Potassium Phos/Sodium Phos (Neutra-Phos) 1 pkt PO TID [facility] Last Admin: 04/28/17 14:29 Dose: 1 pkt Tamsulosin HCl (Flomax) 0.4 mg PO DAILY [facility] Last Admin: 04/28/17 09:05 Dose: 0.4 mg - Labs Labs: 04/28/17 07:10 04/28/17 11:20 PT 11.6 Seconds (9.9-11.8) 04/26/17 19:40 INR 1.07 (0.93-1.08) 04/26/17 19:40 APTT 23.3 Seconds (23.7-30.8) L 04/26/17 19:40 - Constitutional Appears: Well, Non-toxic - Head Exam Head Exam: ATRAUMATIC, NORMOCEPHALIC - Eye Exam Eye Exam: EOMI - ENT Exam ENT Exam: Mucous Membranes Moist - Neck Exam Neck Exam: absent: Lymphadenopathy - Respiratory Exam Respiratory Exam: Clear to Ausculation Bilateral. absent: Rales, Rhonchi, Wheezes - Cardiovascular Exam Cardiovascular Exam: RRR, +S1, +S2 - GI/Abdominal Exam GI & Abdominal Exam: Normal Bowel Sounds Additional comments: Suprapubic Tenderness - Psychiatric Exam Psychiatric exam: Normal Affect, Normal Mood - Skin Skin Exam: Intact Assessment and Plan - Assessment and Plan (Free Text) Assessment: This is a 66 year old male with a past medical history of DM II who presented to the ED with complaints of difficulty urinating, suprapubic pain and general malaise. Plan: (1) Sepsis due to urinary tract infection (resolved) - WBC = 10.6 today -IV cefipime 2 gm in 100 mL NS and Zofran 4 mg IV q 12 hours. -CBC, CMP (2) DM (Acute) - Insulin Low Dose Sliding Scale -Glipizide per Endo -Has seen Regulatory Consultant -Endo Consulted. Recommendations appreciated. (3) Hypophosphatemia Neutraphos 1 packet PO TID. Will continue to monitor phosphate levels during course of stay. (4) Prostatitis -Urology Consulted -Cont. Flomax - Percocet 5/325 Q6 1 tab PO Daily for suprapubic tenderness <Cali Moran B - Last Filed: 04/29/17 18:10> Objective - Vital Signs/Intake and Output Vital Signs (last 24 hours): Temp Pulse Resp BP Pulse Ox 90.3 F L 86 16 147/87 98 04/29/17 12:00 04/29/17 12:00 04/29/17 12:00 04/29/17 12:00 04/29/17 06:00 Intake and Output: 04/29/17 04/29/17 06:59 18:59 Intake Total 2100 Output Total 2300 Balance -200 - Medications Medications: Current Medications Acetaminophen (Tylenol 325mg Tab) 650 mg PO Q6H PRN PRN Reason: Fever >100.4 F Glipizide (Glucotrol) 10 mg PO 0730,1630 [facility] Last Admin: 04/29/17 08:40 Dose: 10 mg Heparin Sodium (Porcine) (Heparin) 5,000 units SC Q8 [facility] PRN Reason: Protocol Last Admin: 04/29/17 06:53 Dose: 5,000 units Cefepime HCl (Maxipime 2gm) 2 gm in 100 mls @ 100 mls/hr IVPB Q12 [facility] PRN Reason: Protocol Stop: 05/02/17 10:01 Last Admin: 04/29/17 10:36 Dose: 100 mls/hr Sodium Chloride (Sodium Chloride 0.9%) 1,000 mls @ 150 mls/hr IV .Q6H40M [facility] Last Admin: 04/29/17 13:43 Dose: Not Given Insulin Human Regular (Humulin R Low) 0 units SC ACHS [facility] PRN Reason: Protocol Last Admin: 04/29/17 12:19 Dose: 1 units Metformin HCl (Glucophage) 500 mg PO BID [facility] Last Admin: 04/29/17 10:36 Dose: 500 mg Ondansetron HCl (Zofran Inj) 4 mg IVP Q6H PRN PRN Reason: Nausea/Vomiting Oxycodone/Acetaminophen (Percocet 5/325 Mg Tab) 1 tab PO Q6H PRN PRN Reason: Pain, severe (8-10) Stop: 04/30/17 11:58 Last Admin: 04/29/17 06:53 Dose: 1 tab Pantoprazole Sodium (Protonix Ec Tab) 40 mg PO DAILY [facility] Last Admin: 04/29/17 10:36 Dose: 40 mg Potassium Phos/Sodium Phos (Neutra-Phos) 1 pkt PO TID [facility] Last Admin: 04/29/17 10:36 Dose: 1 pkt Tamsulosin HCl (Flomax) 0.4 mg PO DAILY [facility] Last Admin: 04/29/17 10:36 Dose: 0.4 mg - Labs Labs: 04/29/17 06:20 04/29/17 06:20 PT 11.6 Seconds (9.9-11.8) 04/26/17 19:40 INR 1.07 (0.93-1.08) 04/26/17 19:40 APTT 23.3 Seconds (23.7-30.8) L 04/26/17 19:40 Attending/Attestation - Attestation I have personally seen and examined this patient.: Yes I have fully participated in the care of the patient.: Yes I have reviewed all pertinent clinical information, including history, physical exam and plan: Yes Notes (Text): I have seen and examined patient at bedside. Agree with the above note with the following additions vs exceptions: Briefly this is 66 year old male with history of uncontrolled DM-2 who was recently diagnosed with prostatis and was sent home on cipro admitted with persistent urinary symptoms and sepsis. He has leucocytosis. Urine culture pending. Will continue cefepime. CT scan revealed enlarged pelvic LN and there is a suspicion of prostate carcinoma. Urology consult pending. HBA1C pending. Upon discharge patient will follow up PMD of choice. Dr Cali Moran
[2017-04-29] MEDS: Oxycodone/Acetaminophen 5/325 mg Tab PO PRN ×3 (00:47→15:35)
[2017-04-29] MEDS: Sodium Chloride 0.9% 1,000 ML IV SCH ×5 (00:47→18:36)
[2017-04-29] MEDS ORDERED: Magnesium Hydroxide Susp 30 ml UD PO ONE (06:14)
[2017-04-29 07:26] LABS: BASO # 0.01 K/mm3 (0.0-2.0); BASO % 0.1 % (0.0-3.0); EOS # 0.2 (0.0-0.7); EOS % 2.1 % (1.5-5.0); GRAN # 7.61 (1.4-6.5); GRAN % 77.9 % (50.0-68.0); HEMOGLOBIN 10.8 gm/dL (14.0-18.0); LYMPH # 1.5 (1.2-3.4); LYMPH % 15.7 % (22.0-35.0); MEAN CELL VOLUME 88.7 fL (80.0-105.0); MEAN CORPUSCULAR HEMOGLOBIN 29.1 pg (25.0-35.0); MEAN CORPUSCULAR HGB CONC 32.8 g/dl (31.0-37.0); MEAN PLATELET VOLUME 8.4 fl (7.0-11.0); MONO # 0.4 (0.1-0.6); MONO % 4.2 % (1.0-6.0); PLATELET COUNT 331 10^3/uL (120.0-450.0); RBC 3.71 10^6/uL (3.5-6.1); RED CELL DISTRIBUTION WIDTH 12.8 % (11.5-14.5); WHITE BLOOD COUNT 9.8 10^3/ul (4.5-11.0)
[2017-04-29 07:35] LABS: ALB/GLOB RATIO 0.8 (1.1-1.8); ALBUMIN 2.9 g/dL (3.0-4.8); ALT/SGPT 31 U/L (7-56); AST/SGOT 32 U/L (15-59); BLOOD UREA NITROGEN 6 mg/dL (7-21); CALCIUM 8.4 mg/dL (8.4-10.5); GFR AFRICAN-AMERICAN > 60; GFR NON-AFRICAN AMERICAN > 60
[2017-04-29] MEDS ORDERED: Iohexol 350 MG/100 ML VIAL ONE (07:44)
[2017-04-29] MEDS: Insulin Reg-LOW-Coverage SC SCH ×4 (08:41→22:12)
[2017-04-29] MEDS: Pantoprazole 40 mg EC Tab PO SCH (10:36)
[2017-04-29] MEDS: Cefepime IV 2 gm in NS 2 GM/100 ML BAG IVPB SCH ×2 (10:36→22:41)
[2017-04-29] MEDS: Potassium & Sodium Phosphate PO SCH ×3 (10:36→18:37)
--- NOTE | 2017-04-29 12:41 | CT ---
PROCEDURE: CT Abdomen and Pelvis with and without intravenous contrast HISTORY: retention, stones, hematuria COMPARISON: 04/26/2017 TECHNIQUE: Axial images of the abdomen were obtained in the pre contrast, portal venous and delayed phases of enhancement. Coronal and sagittal reformats were generated. Contrast dose: 100 mL Omnipaque 350 Radiation dose: Total exam DLP = 3743.62 mGy-cm. This CT exam was performed using one or more of the following dose reduction techniques: Automated exposure control, adjustment of the mA and/or kV according to patient size, and/or use of iterative reconstruction technique. FINDINGS: LOWER THORAX: Trace bilateral pleural effusion. No infiltrate. Mild cardiomegaly LIVER: Unremarkable. No gross lesion or ductal dilatation. GALLBLADDER AND BILE DUCTS: Unremarkable. PANCREAS: Unremarkable. No gross lesion or ductal dilatation. SPLEEN: Unremarkable. ADRENALS: Unremarkable. No mass. KIDNEYS AND URETERS: No hydronephrosis. Left lower pole renal cyst, 2.3 cm. Additional small low-attenuation lesions, too small to accurately characterize. These measure 7 mm in the upper pole right kidney and 9 mm in the upper pole left kidney. No calculus or hydronephrosis. Urographic phase images demonstrate no filling defect within the ureters or pelvicaliceal system. VASCULATURE: Unremarkable. No aortic aneurysm. BOWEL: Scattered colonic diverticulae. No evidence of diverticulitis. No bowel obstruction. APPENDIX: Normal appendix. PERITONEUM: Unremarkable. No free fluid. No free air. LYMPH NODES: There are multiple mildly enlarged pelvic lymph nodes identified. There is no retroperitoneal lymphadenopathy. BLADDER: The bladder is nondistended. Ortiz catheter balloon is seen. There is mild perivesical inflammatory change. This may reflect a cystitis but is nonspecific. Please correlate. REPRODUCTIVE: The prostate is enlarged measuring up to 7 on a 2 cm in diameter. There are curvilinear low-attenuation collections within the prostate which may reflect abscess. They enhance peripherally. There is infiltration of the periprostatic fat. This is consistent with an inflammatory or neoplastic process. BONES: No acute fracture. OTHER FINDINGS: None. IMPRESSION: Intra prostatic fluid collection with peripheral enhancement suspicious for prostate abscess. Infiltration of the periprostatic fat. Prostate neoplasm must be ruled out. Mild infiltration of the perivesical fat raises the possibility of a cystitis. Please correlate with urinalysis. Multiple pelvic sidewall lymph nodes, possibly reflecting the prostatitis but also may be seen in response to prostate neoplasm. Additional minor findings as above
--- NOTE | 2017-04-29 16:06 | CP.PCM.PN ---
<Shakir Caceres - Last Filed: 04/29/17 16:03> Subjective - Date & Time of Evaluation Date of Evaluation: 04/29/17 Time of Evaluation: 16:03 - Subjective Subjective: This is a 66 year old male with a past medical history of DM II who presented to the ED with complaints of difficulty urinating, suprapubic pain and general malaise. A CT was ordered today which found a possible abscess; ID was consulted. Objective - Vital Signs/Intake and Output Vital Signs (last 24 hours): Temp Pulse Resp BP Pulse Ox 90.3 F L 86 16 147/87 98 04/29/17 12:00 04/29/17 12:00 04/29/17 12:00 04/29/17 12:00 04/29/17 06:00 Intake and Output: 04/29/17 04/29/17 06:59 18:59 Intake Total 2100 Output Total 2300 Balance -200 - Medications Medications: Current Medications Acetaminophen (Tylenol 325mg Tab) 650 mg PO Q6H PRN PRN Reason: Fever >100.4 F Glipizide (Glucotrol) 10 mg PO 0730,1630 [facility] Last Admin: 04/29/17 08:40 Dose: 10 mg Heparin Sodium (Porcine) (Heparin) 5,000 units SC Q8 [facility] PRN Reason: Protocol Last Admin: 04/29/17 15:36 Dose: 5,000 units Cefepime HCl (Maxipime 2gm) 2 gm in 100 mls @ 100 mls/hr IVPB Q12 [facility] PRN Reason: Protocol Stop: 05/02/17 10:01 Last Admin: 04/29/17 10:36 Dose: 100 mls/hr Sodium Chloride (Sodium Chloride 0.9%) 1,000 mls @ 150 mls/hr IV .Q6H40M [facility] Last Admin: 04/29/17 13:43 Dose: Not Given Insulin Human Regular (Humulin R Low) 0 units SC ACHS [facility] PRN Reason: Protocol Last Admin: 04/29/17 12:19 Dose: 1 units Metformin HCl (Glucophage) 500 mg PO BID [facility] Last Admin: 04/29/17 10:36 Dose: 500 mg Ondansetron HCl (Zofran Inj) 4 mg IVP Q6H PRN PRN Reason: Nausea/Vomiting Oxycodone/Acetaminophen (Percocet 5/325 Mg Tab) 1 tab PO Q6H PRN PRN Reason: Pain, severe (8-10) Stop: 04/30/17 11:58 Last Admin: 04/29/17 15:35 Dose: 1 tab Pantoprazole Sodium (Protonix Ec Tab) 40 mg PO DAILY [facility] Last Admin: 04/29/17 10:36 Dose: 40 mg Potassium Phos/Sodium Phos (Neutra-Phos) 1 pkt PO TID [facility] Last Admin: 04/29/17 15:35 Dose: 1 pkt Tamsulosin HCl (Flomax) 0.4 mg PO DAILY [facility] Last Admin: 04/29/17 10:36 Dose: 0.4 mg - Labs Labs: 04/29/17 06:20 04/29/17 06:20 PT 11.6 Seconds (9.9-11.8) 04/26/17 19:40 INR 1.07 (0.93-1.08) 04/26/17 19:40 APTT 23.3 Seconds (23.7-30.8) L 04/26/17 19:40 - Constitutional Appears: Well, Non-toxic, No Acute Distress - Head Exam Head Exam: ATRAUMATIC, NORMOCEPHALIC - ENT Exam ENT Exam: Mucous Membranes Moist - Neck Exam Neck Exam: absent: Lymphadenopathy - Respiratory Exam Respiratory Exam: Clear to Ausculation Bilateral. absent: Rales, Rhonchi, Wheezes, Stridor - Cardiovascular Exam Cardiovascular Exam: +S1, +S2 - GI/Abdominal Exam GI & Abdominal Exam: Soft, Normal Bowel Sounds Additional comments: Suprapubic tenderness - Extremities Exam Extremities Exam: absent: Pedal Edema - Psychiatric Exam Psychiatric exam: Normal Affect, Normal Mood - Skin Skin Exam: Normal Color, Warm Assessment and Plan - Assessment and Plan (Free Text) Assessment: This is a 66 year old male with a past medical history of DM II who presented to the ED with complaints of difficulty urinating, suprapubic pain and general malaise. A CT was ordered today which found a possible abscess; ID was consulted. Plan: (1) Prostatitis vs Prostate Abscess vs Neoplasm (less likely). -Urology Consulted recommended PO Antibiotics and outpatient F/U -ID Consulted - Percocet 5/325 Q6 1 tab PO Daily for suprapubic tenderness (2) DM (Acute) - Insulin Low Dose Sliding Scale -Glipizide per Endo -Has seen [employer] Professor -Endo Consulted. Recommendations appreciated. (3) Sepsis due to urinary tract infection (resolved) - WBC = 10.6 today -IV cefipime 2 gm in 100 mL NS and Zofran 4 mg IV q 12 hours. -CBC, CMP (4) Hypophosphatemia Neutraphos 1 packet PO TID. Will continue to monitor phosphate levels during course of stay. (5) GI proph -Protonix <Cali Moran - Last Filed: 04/29/17 18:19> Objective - Vital Signs/Intake and Output Vital Signs (last 24 hours): Temp Pulse Resp BP Pulse Ox 99 F 88 20 145/84 96 04/29/17 17:11 04/29/17 17:11 04/29/17 17:11 04/29/17 17:11 04/29/17 16:00 Intake and Output: 04/29/17 04/29/17 06:59 18:59 Intake Total 2100 Output Total 2300 Balance -200 - Medications Medications: Current Medications Acetaminophen (Tylenol 325mg Tab) 650 mg PO Q6H PRN PRN Reason: Fever >100.4 F Glipizide (Glucotrol) 10 mg PO 0730,1630 [facility] Last Admin: 04/29/17 18:03 Dose: 10 mg Heparin Sodium (Porcine) (Heparin) 5,000 units SC Q8 [facility] PRN Reason: Protocol Last Admin: 04/29/17 15:36 Dose: 5,000 units Cefepime HCl (Maxipime 2gm) 2 gm in 100 mls @ 100 mls/hr IVPB Q12 [facility] PRN Reason: Protocol Stop: 05/02/17 10:01 Last Admin: 04/29/17 10:36 Dose: 100 mls/hr Sodium Chloride (Sodium Chloride 0.9%) 1,000 mls @ 150 mls/hr IV .Q6H40M [facility] Last Admin: 04/29/17 13:43 Dose: Not Given Insulin Human Regular (Humulin R Low) 0 units SC ACHS [facility] PRN Reason: Protocol Last Admin: 04/29/17 18:05 Dose: 1 units Metformin HCl (Glucophage) 500 mg PO BID [facility] Last Admin: 04/29/17 18:03 Dose: 500 mg Ondansetron HCl (Zofran Inj) 4 mg IVP Q6H PRN PRN Reason: Nausea/Vomiting Oxycodone/Acetaminophen (Percocet 5/325 Mg Tab) 1 tab PO Q6H PRN PRN Reason: Pain, severe (8-10) Stop: 04/30/17 11:58 Last Admin: 04/29/17 15:35 Dose: 1 tab Pantoprazole Sodium (Protonix Ec Tab) 40 mg PO DAILY [facility] Last Admin: 04/29/17 10:36 Dose: 40 mg Potassium Phos/Sodium Phos (Neutra-Phos) 1 pkt PO TID [facility] Last Admin: 04/29/17 15:35 Dose: 1 pkt Tamsulosin HCl (Flomax) 0.4 mg PO DAILY [facility] Last Admin: 04/29/17 10:36 Dose: 0.4 mg - Labs Labs: 04/29/17 06:20 04/29/17 06:20 PT 11.6 Seconds (9.9-11.8) 04/26/17 19:40 INR 1.07 (0.93-1.08) 04/26/17 19:40 APTT 23.3 Seconds (23.7-30.8) L 04/26/17 19:40 Attending/Attestation - Attestation I have personally seen and examined this patient.: Yes I have fully participated in the care of the patient.: Yes I have reviewed all pertinent clinical information, including history, physical exam and plan: Yes Notes (Text): I have seen and examined patient at bedside. Agree with the above note with the following additions vs exceptions: Briefly this is 66 year old male with history of uncontrolled DM-2 who came for persistent urinary symtoms, fever and found to have acute prostatitis. Urine culture revealed Ecoli sensitive to cefepime. CT scan revealed enlarged pelvic LN and there is a suspicion of prostate carcinoma VS prostate abscess. Discussed with Dr Amos who recommended to discharge patient on prolong course of po antibiotics. Ortiz catheter discontinued. Patient will follow up with Dr Amos in the office. There is no surgical intervention required at this time. Nurse reported that patient is slightly unsteady. Awaiting PT eval. [id number]. His medications were adjusted. Upon discharge patient will follow up in [facility] clinic. Dr Cali Moran
[2017-04-29 16:18] VITALS: RESP 20
[2017-04-30] MEDS: Sodium Chloride 0.9% 1,000 ML IV SCH ×2 (02:42→09:28)
[2017-04-30 07:15] LABS: BASO # 0.02 K/mm3 (0.0-2.0); BASO % 0.2 % (0.0-3.0); EOS # 0.2 (0.0-0.7); EOS % 2.3 % (1.5-5.0); GRAN # 7.37 (1.4-6.5); GRAN % 76.3 % (50.0-68.0); HEMOGLOBIN 10.8 gm/dL (14.0-18.0); LYMPH # 1.5 (1.2-3.4); LYMPH % 15.4 % (22.0-35.0); MEAN CELL VOLUME 88.9 fL (80.0-105.0); MEAN CORPUSCULAR HEMOGLOBIN 29.3 pg (25.0-35.0); MEAN PLATELET VOLUME 8.4 fl (7.0-11.0); MONO # 0.6 (0.1-0.6); MONO % 5.8 % (1.0-6.0); PLATELET COUNT 336 10^3/uL (120.0-450.0); RBC 3.68 10^6/uL (3.5-6.1); RED CELL DISTRIBUTION WIDTH 12.9 % (11.5-14.5); WHITE BLOOD COUNT 9.7 10^3/ul (4.5-11.0)
[2017-04-30 07:24] LABS: ALB/GLOB RATIO 0.9 (1.1-1.8); ALT/SGPT 43 U/L (7-56); AST/SGOT 55 U/L (15-59); BLOOD UREA NITROGEN 8 mg/dL (7-21); CALCIUM 8.6 mg/dL (8.4-10.5); GFR AFRICAN-AMERICAN > 60; GFR NON-AFRICAN AMERICAN > 60
[2017-04-30 07:48] VITALS: BP 157/74; PULSE 77; TEMP 98.6; O2SAT 95
[2017-04-30] MEDS: Insulin Reg-LOW-Coverage SC SCH ×2 (08:10→11:42)
[2017-04-30] MEDS ORDERED: ceFAZolin 2 GM in Sodium Chloride 0.9% 100 ML IVPB SCH (08:15)
[2017-04-30] MEDS: Potassium & Sodium Phosphate PO SCH (09:29)
--- NOTE | 2017-04-30 10:54 | CP.PCM.CON ---
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 He also had generalized weakness but no fever. He was seen in the ED and was told he had prostatitis and was given Ciprofloxacin and apparently became delirious and came back to the hospital. CT scan revealed possible prostatic abscess. The patient denies fever or chills, no nausea or vomiting, no chest pain, no SOB, no headache or dizziness, no abdominal pain, no diarrhea. Infectious Diseases consult is requested to further evaluate and manage. Review of Systems - Review of Systems All systems: reviewed and no additional remarkable complaints except (as per HPI ) Past Patient History - Infectious Disease Hx of Infectious Diseases: None - Past Medical History & Family History Past Medical History?: No - Past Social History Smoking Status: Never Smoked - CARDIAC Hx Cardiac Disorders: No - PULMONARY Hx Respiratory Disorders: No - NEUROLOGICAL Hx Neurological Disorder: No - HEENT Hx HEENT Problems: No - RENAL Hx Chronic Kidney Disease: No - ENDOCRINE/METABOLIC Hx Endocrine Disorders: Yes Hx Diabetes Mellitus Type 2: Yes (NIDD) - HEMATOLOGICAL/ONCOLOGICAL Hx Blood Disorders: No - INTEGUMENTARY Other/Comment: multiple skin discolorations ble and dry scabs to rle, small red wound 0.5cm round left shoulder - MUSCULOSKELETAL/RHEUMATOLOGICAL Hx Musculoskeletal Disorders: No Hx Falls: No - GASTROINTESTINAL Hx Gastrointestinal Disorders: No - GENITOURINARY/GYNECOLOGICAL Hx Genitourinary Disorders: Yes (difficulty urinating) - PSYCHIATRIC Hx Psychophysiologic Disorder: No Hx Substance Use: No - SURGICAL HISTORY 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) - ANESTHESIA Hx Anesthesia: No Meds Home Medications: Home Medication List Medication Instructions Recorded Confirmed Type GlipiZIDE [Glucotrol] 10 mg PO 0730,1630 #60 tab 04/29/17 Rx Tamsulosin [Flomax] 0.4 mg PO DAILY #30 cap 04/29/17 Rx metFORMIN [glucOPHAGE] 850 mg PO BID #60 tab 04/29/17 Rx Allergies/Adverse Reactions: Allergies Allergy/AdvReac Type Severity Reaction Status Date / Time No Known Allergies Allergy Verified 04/26/17 13:37 - Medications Medications: Current Medications Acetaminophen (Tylenol 325mg Tab) 650 mg PO Q6H PRN PRN Reason: Fever >100.4 F Glipizide (Glucotrol) 10 mg PO 0730,1630 [facility] Last Admin: 04/29/17 18:03 Dose: 10 mg Heparin Sodium (Porcine) (Heparin) 5,000 units SC Q8 [facility] PRN Reason: Protocol Last Admin: 04/29/17 22:42 Dose: 5,000 units Cefepime HCl (Maxipime 2gm) 2 gm in 100 mls @ 100 mls/hr IVPB Q12 [facility] PRN Reason: Protocol Stop: 05/02/17 10:01 Last Admin: 04/29/17 22:41 Dose: 100 mls/hr Sodium Chloride (Sodium Chloride 0.9%) 1,000 mls @ 150 mls/hr IV .Q6H40M [facility] Last Admin: 04/29/17 18:36 Dose: 150 mls/hr Insulin Human Regular (Humulin R Low) 0 units SC ACHS [facility] PRN Reason: Protocol Last Admin: 04/29/17 22:12 Dose: Not Given Metformin HCl (Glucophage) 500 mg PO BID [facility] Last Admin: 04/29/17 18:03 Dose: 500 mg Ondansetron HCl (Zofran Inj) 4 mg IVP Q6H PRN PRN Reason: Nausea/Vomiting Oxycodone/Acetaminophen (Percocet 5/325 Mg Tab) 1 tab PO Q6H PRN PRN Reason: Pain, severe (8-10) Stop: 04/30/17 11:58 Last Admin: 04/29/17 15:35 Dose: 1 tab Pantoprazole Sodium (Protonix Ec Tab) 40 mg PO DAILY [facility] Last Admin: 04/29/17 10:36 Dose: 40 mg Potassium Phos/Sodium Phos (Neutra-Phos) 1 pkt PO TID [facility] Last Admin: 04/29/17 18:37 Dose: 1 pkt Tamsulosin HCl (Flomax) 0.4 mg PO DAILY [facility] Last Admin: 04/29/17 10:36 Dose: 0.4 mg Physical Exam - Constitutional Appears: Non-toxic, No Acute Distress - Head Exam Head Exam: NORMAL INSPECTION - ENT Exam ENT Exam: Mucous Membranes Moist - Neck Exam Neck exam: Negative for: Lymphadenopathy, Meningismus - Respiratory Exam Respiratory Exam: Decreased Breath Sounds - Cardiovascular Exam Cardiovascular Exam: +S1, +S2 - GI/Abdominal Exam GI & Abdominal Exam: Soft. absent: Tenderness Results - Vital Signs Recent Vital Signs: Last Vital Signs Temp 99 F 04/29/17 17:11 Pulse 88 04/29/17 17:11 Resp 20 04/29/17 17:11 BP 145/84 04/29/17 17:11 Pulse Ox 96 04/29/17 16:00 - Labs Result Diagrams: 04/30/17 06:50 04/30/17 06:50 Labs: Laboratory Results - last 24 hr 04/29/17 04/29/17 04/29/17 06:20 06:20 07:28 WBC 9.8 RBC 3.71 Hgb 10.8 L Hct 32.9 L MCV 88.7 MCH 29.1 MCHC 32.8 RDW 12.8 Plt Count 331 MPV 8.4 Gran % 77.9 H Lymph % (Auto) 15.7 L Spencer % (Auto) 4.2 Eos % (Auto) 2.1 Baso % (Auto) 0.1 Gran # 7.61 H Lymph # 1.5 Spencer # 0.4 Eos # 0.2 Baso # 0.01 Sodium 138 Potassium 3.9 Chloride 103 Carbon Dioxide 28 Anion Gap 11 BUN 6 L Creatinine 0.6 Est GFR ( Amer) > 60 Est GFR (Non-Af Amer) > 60 POC Glucose (mg/dL) 186 H Random Glucose 170 H Calcium 8.4 Total Bilirubin 0.4 AST 32 ALT 31 Alkaline Phosphatase 152 H Total Protein 6.5 Albumin 2.9 L Globulin 3.5 Albumin/Globulin Ratio 0.8 L 04/29/17 04/29/17 11:16 15:55 WBC RBC Hgb Hct MCV MCH MCHC RDW Plt Count MPV Gran % Lymph % (Auto) Spencer % (Auto) Eos % (Auto) Baso % (Auto) Gran # Lymph # Spencer # Eos # Baso # Sodium Potassium Chloride Carbon Dioxide Anion Gap BUN Creatinine Est GFR ( Amer) Est GFR (Non-Af Amer) POC Glucose (mg/dL) 226 H 167 H Random Glucose Calcium Total Bilirubin AST ALT Alkaline Phosphatase Total Protein Albumin Globulin Albumin/Globulin Ratio Assessment & Plan - Assessment and Plan (Free Text) Plan: Assessment Consider prostatitis with possible prostatic abscess R/O prostate cancer; urine growing E. 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 Moxifloxacin), but since the patient developed an apparent delirious reaction to Ciprofloxacin, other antibiotics should be considered such as Bactrim with Flagyl or PO Vantin with Flagyl - patient should follow up with a primary care physician in a week and should also see a Urologist
--- NOTE | 2017-04-30 11:44 | CP.PCM.DIS ---
<Shakir Caceres - Last Filed: 04/30/17 11:38> Provider - Provider Date of Admission: 04/26/17 21:02 Attending physician: Cali Moran MD Primary care physician: NO PRIMARY CARE PROVIDER Consults: Uro- Dr. Bette Nagy Time Spent in preparation of Discharge (in minutes): 35 Hospital Course - Lab Results Lab Results: Most Recent Lab Values WBC 9.7 10^3/ul (4.5-11.0) 04/30/17 06:50 RBC 3.68 10^6/uL (3.5-6.1) 04/30/17 06:50 Hgb 10.8 gm/dL (14.0-18.0) L 04/30/17 06:50 Hct 32.7 % (42.0-52.0) L 04/30/17 06:50 MCV 88.9 fL (80.0-105.0) 04/30/17 06:50 MCH 29.3 pg (25.0-35.0) 04/30/17 06:50 MCHC 33.0 g/dl (31.0-37.0) 04/30/17 06:50 RDW 12.9 % (11.5-14.5) 04/30/17 06:50 Plt Count 336 10^3/uL (120.0-450.0) 04/30/17 06:50 MPV 8.4 fl (7.0-11.0) 04/30/17 06:50 Gran % 76.3 % (50.0-68.0) H 04/30/17 06:50 Lymph % (Auto) 15.4 % (22.0-35.0) L 04/30/17 06:50 Bradley % (Auto) 5.8 % (1.0-6.0) 04/30/17 06:50 Eos % (Auto) 2.3 % (1.5-5.0) 04/30/17 06:50 Baso % (Auto) 0.2 % (0.0-3.0) 04/30/17 06:50 Gran # 7.37 (1.4-6.5) H 04/30/17 06:50 Lymph # 1.5 (1.2-3.4) 04/30/17 06:50 Bradley # 0.6 (0.1-0.6) 04/30/17 06:50 Eos # 0.2 (0.0-0.7) 04/30/17 06:50 Baso # 0.02 K/mm3 (0.0-2.0) 04/30/17 06:50 PT 11.6 Seconds (9.9-11.8) 04/26/17 19:40 INR 1.07 (0.93-1.08) 04/26/17 19:40 APTT 23.3 Seconds (23.7-30.8) L 04/26/17 19:40 pO2 103 mm/Hg (30-55) H 04/26/17 23:06 VBG pH 7.39 (7.32-7.43) 04/26/17 23:06 VBG pCO2 35.0 (40-60) L 04/26/17 23:06 VBG HCO3 21.2 mmol/l (21-28) 04/26/17 23:06 VBG Total CO2 22.3 mmol.L (22-28) 04/26/17 23:06 VBG O2 Sat (Calc) 98.6 % (40-65) H 04/26/17 23:06 VBG Base Excess -3.2 mmol/L (0.0-2.0) L 04/26/17 23:06 VBG Potassium 4.2 mmol/L (3.6-5.2) 04/26/17 23:06 Sodium 134.0 mmol/L (132-148) 04/26/17 23:06 Chloride 106.0 mmol/L (98-107) 04/26/17 23:06 Glucose 372 mg/dl (75-110) H 04/26/17 23:06 Lactate 1.3 mmol/L (0.7-2.1) 04/26/17 23:06 FiO2 21.0 % 04/26/17 23:06 Sodium 136 mmol/L (132-148) 04/30/17 06:50 Potassium 4.1 mmol/L (3.6-5.0) 04/30/17 06:50 Chloride 102 mmol/L (95-110) 04/30/17 06:50 Carbon Dioxide 28 mmol/L (21-33) 04/30/17 06:50 Anion Gap 10 (10-20) 04/30/17 06:50 BUN 8 mg/dL (7-21) 04/30/17 06:50 Creatinine 0.6 mg/dL (0.5-1.4) 04/30/17 06:50 Est GFR ( Amer) > 60 04/30/17 06:50 Est GFR (Non-Af Amer) > 60 04/30/17 06:50 POC Glucose (mg/dL) 167 mg/dL (65-110) H 04/29/17 15:55 Random Glucose 185 mg/dL (70-110) H 04/30/17 06:50 Hemoglobin A1c 13.2 % (4.2-6.5) H 04/27/17 12:00 Calcium 8.6 mg/dL (8.4-10.5) 04/30/17 06:50 Phosphorus 2.0 mg/dL (2.5-4.5) L 04/26/17 19:40 Magnesium 1.7 mg/dL (1.7-2.2) 04/26/17 19:40 Total Bilirubin 0.4 mg/dL (0.2-1.3) 04/30/17 06:50 AST 55 U/L (15-59) 04/30/17 06:50 ALT 43 U/L (7-56) 04/30/17 06:50 Alkaline Phosphatase 154 U/L (38-133) H 04/30/17 06:50 Total Protein 6.5 g/dL (5.8-8.3) 04/30/17 06:50 Albumin 3.0 g/dL (3.0-4.8) 04/30/17 06:50 Globulin 3.5 gm/dL 04/30/17 06:50 Albumin/Globulin Ratio 0.9 (1.1-1.8) L 04/30/17 06:50 Venous Blood Potassium 4.2 mmol/L (3.6-5.2) 04/26/17 23:06 Urine Color Yellow (YELLOW) 04/27/17 01:00 Urine Appearance Sl cloudy (CLEAR) 04/27/17 01:00 Urine pH 6.0 (4.7-8.0) 04/27/17 01:00 Ur Specific Brooten 1.025 (1.005-1.035) 04/27/17 01:00 Urine Protein Trace mg/dL (<30 mg/dL) H 04/27/17 01:00 Urine Glucose (UA) >=1000 mg/dL (NEGATIVE) 04/27/17 01:00 Urine Ketones 40 mg/dL (NEGATIVE) H 04/27/17 01:00 Urine Blood Large (NEGATIVE) H 04/27/17 01:00 Urine Nitrate Positive (NEGATIVE) H 04/27/17 01:00 Urine Bilirubin Negative (NEGATIVE) 04/27/17 01:00 Urine Urobilinogen 0.2 E.U./dL (<1 E.U./dL) 04/27/17 01:00 Ur Leukocyte Esterase Small Orquidea/uL (NEGATIVE) H 04/27/17 01:00 Urine RBC 5 - 10 /hpf (0-2) 04/27/17 01:00 Urine WBC 5 - 10 /hpf (0-6) 04/27/17 01:00 Ur Epithelial Cells 0 - 2 /hpf (0-5) 04/27/17 01:00 Urine Bacteria Small (NEG) 04/27/17 01:00 - Hospital Course Hospital Course: This patient is a 66 year old male with a PMH of DM II who presented to the ED on 04/26/17 with complaints of difficulty urinating, suprapubic pain and general feeling of malaise. Patient was evaluated in the ED and prescribed with ciprofloxacin. Patient was later found to be delirious per GF. Patient returned to the ED with similar symptoms. Urine cultures came back positive w/ E.coli only resistant to ampicillin and he was started on IV cefipime. His Leukocytosis is now resolved. Physical Exam showed pelvic lymphadenopathy. Urology was consulted. CT findings on Day 3 was suspicious for prostate abscess vs prostatitis vs possible neoplasm. Patients pain has reduced and he is to follow up with Dr. Arndt (Urology) in 1 week. He will continue to take the ciprofloxacin he was prescribed on the 04/26/17. Plan and medications have been discussed with patient and he is agreeable to it. - Date & Time of H&P Date of H&P: 04/30/17 Time of H&P: 11:39 Discharge Exam - Head Exam Head Exam: ATRAUMATIC, NORMAL INSPECTION, NORMOCEPHALIC - ENT Exam ENT Exam: Mucous Membranes Moist - Neck Exam Neck exam: Normal Inspection - Respiratory Exam Respiratory Exam: absent: Rales, Rhonchi, Wheezes, Stridor - Cardiovascular Exam Cardiovascular Exam: +S1, +S2 - GI/Abdominal Exam GI & Abdominal Exam: Normal Bowel Sounds, Soft. absent: Distended, Tenderness - Extremities Exam Additional comments: no pedal edema - Psychiatric Exam Psychiatric exam: Normal Affect, Normal Mood - Skin Skin Exam: Intact Discharge Plan - Discharge Medications Prescriptions: GlipiZIDE [Glucotrol] 10 mg PO 0730,1630 #60 tab metFORMIN [glucOPHAGE] 850 mg PO BID #60 tab Tamsulosin [Flomax] 0.4 mg PO DAILY #30 cap - Follow Up Plan Condition: STABLE Disposition: HOME/ ROUTINE Instructions: Pneumococcal Vaccine for Adults (DC), Prostatitis (DC), How to Check Your Blood Sugar (DC), Diabetes Mellitus Type 2 in Adults (DC), Basic Carbohydrate Counting (DC), Fall Prevention (DC) Additional Instructions: 1. Follow up with Dr. Amos, Urologist next week. 2. Complete 1 Month Course of antibiotics (Ciprofloxacin 500mg twice per day x 4 weeks) 3. Follow up with [facility] outpatient clinic in 1 week. 4. Take Metformin 850mg twice per day and Glipizide 10mg daily for diabetes. Check sugar regularly. 5. Take Flomax 0.4mg daily. Referrals: at [facility] [Outside] PCP,NO [Primary Care Provider] - Isael Amos MD [Staff Provider] - <JoseSegun - Last Filed: 04/30/17 14:59> Provider - Provider Date of Admission: 04/26/17 21:02 Attending physician: Cali Moran MD Primary care physician: JIMY PRIMARY CARE PROVIDER Hospital Course - Lab Results Lab Results: Most Recent Lab Values WBC 9.7 10^3/ul (4.5-11.0) 04/30/17 06:50 RBC 3.68 10^6/uL (3.5-6.1) 04/30/17 06:50 Hgb 10.8 gm/dL (14.0-18.0) L 04/30/17 06:50 Hct 32.7 % (42.0-52.0) L 04/30/17 06:50 MCV 88.9 fL (80.0-105.0) 04/30/17 06:50 MCH 29.3 pg (25.0-35.0) 04/30/17 06:50 MCHC 33.0 g/dl (31.0-37.0) 04/30/17 06:50 RDW 12.9 % (11.5-14.5) 04/30/17 06:50 Plt Count 336 10^3/uL (120.0-450.0) 04/30/17 06:50 MPV 8.4 fl (7.0-11.0) 04/30/17 06:50 Gran % 76.3 % (50.0-68.0) H 04/30/17 06:50 Lymph % (Auto) 15.4 % (22.0-35.0) L 04/30/17 06:50 Bradley % (Auto) 5.8 % (1.0-6.0) 04/30/17 06:50 Eos % (Auto) 2.3 % (1.5-5.0) 04/30/17 06:50 Baso % (Auto) 0.2 % (0.0-3.0) 04/30/17 06:50 Gran # 7.37 (1.4-6.5) H 04/30/17 06:50 Lymph # 1.5 (1.2-3.4) 04/30/17 06:50 Bradley # 0.6 (0.1-0.6) 04/30/17 06:50 Eos # 0.2 (0.0-0.7) 04/30/17 06:50 Baso # 0.02 K/mm3 (0.0-2.0) 04/30/17 06:50 PT 11.6 Seconds (9.9-11.8) 04/26/17 19:40 INR 1.07 (0.93-1.08) 04/26/17 19:40 APTT 23.3 Seconds (23.7-30.8) L 04/26/17 19:40 pO2 103 mm/Hg (30-55) H 04/26/17 23:06 VBG pH 7.39 (7.32-7.43) 04/26/17 23:06 VBG pCO2 35.0 (40-60) L 04/26/17 23:06 VBG HCO3 21.2 mmol/l (21-28) 04/26/17 23:06 VBG Total CO2 22.3 mmol.L (22-28) 04/26/17 23:06 VBG O2 Sat (Calc) 98.6 % (40-65) H 04/26/17 23:06 VBG Base Excess -3.2 mmol/L (0.0-2.0) L 04/26/17 23:06 VBG Potassium 4.2 mmol/L (3.6-5.2) 04/26/17 23:06 Sodium 134.0 mmol/L (132-148) 04/26/17 23:06 Chloride 106.0 mmol/L (98-107) 04/26/17 23:06 Glucose 372 mg/dl (75-110) H 04/26/17 23:06 Lactate 1.3 mmol/L (0.7-2.1) 04/26/17 23:06 FiO2 21.0 % 04/26/17 23:06 Sodium 136 mmol/L (132-148) 04/30/17 06:50 Potassium 4.1 mmol/L (3.6-5.0) 04/30/17 06:50 Chloride 102 mmol/L (95-110) 04/30/17 06:50 Carbon Dioxide 28 mmol/L (21-33) 04/30/17 06:50 Anion Gap 10 (10-20) 04/30/17 06:50 BUN 8 mg/dL (7-21) 04/30/17 06:50 Creatinine 0.6 mg/dL (0.5-1.4) 04/30/17 06:50 Est GFR ( Amer) > 60 04/30/17 06:50 Est GFR (Non-Af Amer) > 60 04/30/17 06:50 POC Glucose (mg/dL) 167 mg/dL (65-110) H 04/29/17 15:55 Random Glucose 185 mg/dL (70-110) H 04/30/17 06:50 Hemoglobin A1c 13.2 % (4.2-6.5) H 04/27/17 12:00 Calcium 8.6 mg/dL (8.4-10.5) 04/30/17 06:50 Phosphorus 2.0 mg/dL (2.5-4.5) L 04/26/17 19:40 Magnesium 1.7 mg/dL (1.7-2.2) 04/26/17 19:40 Total Bilirubin 0.4 mg/dL (0.2-1.3) 04/30/17 06:50 AST 55 U/L (15-59) 04/30/17 06:50 ALT 43 U/L (7-56) 04/30/17 06:50 Alkaline Phosphatase 154 U/L (38-133) H 04/30/17 06:50 Total Protein 6.5 g/dL (5.8-8.3) 04/30/17 06:50 Albumin 3.0 g/dL (3.0-4.8) 04/30/17 06:50 Globulin 3.5 gm/dL 04/30/17 06:50 Albumin/Globulin Ratio 0.9 (1.1-1.8) L 04/30/17 06:50 Venous Blood Potassium 4.2 mmol/L (3.6-5.2) 04/26/17 23:06 Urine Color Yellow (YELLOW) 04/27/17 01:00 Urine Appearance Sl cloudy (CLEAR) 04/27/17 01:00 Urine pH 6.0 (4.7-8.0) 04/27/17 01:00 Ur Specific [place] 1.025 (1.005-1.035) 04/27/17 01:00 Urine Protein Trace mg/dL (<30 mg/dL) H 04/27/17 01:00 Urine Glucose (UA) >=1000 mg/dL (NEGATIVE) 04/27/17 01:00 Urine Ketones 40 mg/dL (NEGATIVE) H 04/27/17 01:00 Urine Blood Large (NEGATIVE) H 04/27/17 01:00 Urine Nitrate Positive (NEGATIVE) H 04/27/17 01:00 Urine Bilirubin Negative (NEGATIVE) 04/27/17 01:00 Urine Urobilinogen 0.2 E.U./dL (<1 E.U./dL) 04/27/17 01:00 Ur Leukocyte Esterase Small [place]/uL (NEGATIVE) H 04/27/17 01:00 Urine RBC 5 - 10 /hpf (0-2) 04/27/17 01:00 Urine WBC 5 - 10 /hpf (0-6) 04/27/17 01:00 Ur Epithelial Cells 0 - 2 /hpf (0-5) 04/27/17 01:00 Urine Bacteria Small (NEG) 04/27/17 01:00 HIV 1&2 Ag/Ab, 4th Gen Nonreactive (Nonreactive) 04/29/17 07:30 Attending/Attestation - Attestation I have personally seen and examined this patient.: Yes I have fully participated in the care of the patient.: Yes I have reviewed all pertinent clinical information, including history, physical exam and plan: Yes Notes (Text): suspicious for prostate abscess /prostatitis /possible neoplasm continue abx oral cipro and close follow up with [facility].
[2017-04-30 19:04] LABS: TOTAL PSA 3.1 ng/mL (<=4.0)
== END 2017-04-30 14:30 | disposition home or self-care (01) | DRG 901 ==
LOC: ED 18:48 → ERH 21:02 → 2RSO 23:14 → 5RNO 04-29 19:04
PROVIDERS: ADMIT Internal Medicine; ATTEND Hospitalist
DX: A41.9 Sepsis, unspecified organism (principal); E11.65 Type 2 diabetes mellitus with hyperglycemia; N39.0 Urinary tract infection, site not specified; N41.0 Acute prostatitis; K59.00 Constipation, unspecified; E83.39 Other disorders of phosphorus metabolism; E66.9 Obesity, unspecified; Z68.30 Body mass index [BMI] 30.0-30.9, adult; Z79.84 Long term (current) use of oral hypoglycemic drugs; Z16.11 Resistance to penicillins